=== PATIENT | female | born 1985 | race African-American/Black ===

== ENCOUNTER 2016-10-30 09:17 | Emergency (ER) | payer SELFPAY ==
[2016-10-30] MEDS ORDERED: TETRACAINE HCL 0.5% OPH SOLN 2 ML ONE (10:35)
[2016-10-30] MEDS ORDERED: DIPH/PERTUSS(ACELL)/TETANUS VAC/PF 0.5 ML SYR (>=10YO) IM ONE (10:53)
--- NOTE | 2016-10-30 11:04 | ER Document Report ---
ED Eye Complaint - General Chief Complaint: Redness of Eye Stated Complaint: EYE PAIN Time seen by provider: 10:57 Mode of Arrival: Ambulatory Information source: Patient Notes: This is a 31-year-old female that presents to the emergency room with right eye redness and irritation. Patient states that she recently went to [facility] 2 days ago and received new contact lenses and wear them all day Sunday and took out the contact lenses Sunday night. She states she put the contacts back in on Sunday morning and during the day she noticed that her right I was getting red and irritated. She took at the contacts Sunday night at 9:30 PM. She awoke this morning (Sunday) with right eye irritation, watering and redness. TRAVEL OUTSIDE OF THE [place] IN LAST 30 DAYS: No - HPI Onset: Yesterday Eye location: Right Injury: No Occurred at: Home Quality of pain: Dull Severity: Mild Pain Level: 1 Exposure: No: Alkaline chemical, Acidic chemical, Unknown chemical, Direct trauma, Projectile, Broken glass, Conjunctivitis, Welding arc, [place], Other Safety glasses worn: No Contact lenses worn: No Associated symptoms: Burning, Itching, Photophobia, Redness - Related Data Allergies/Adverse Reactions: No Known Allergies Allergy (Verified 10/30/16 09:30) Past Medical History - General Information source: Patient - Social History Smoking Status: Never Smoker Cigarette use (# per day): No Chew tobacco use (# tins/day): No Frequency of alcohol use: Occasional Drug Abuse: Marijuana Lives with: Family Family History: Arthritis, CVA, DM, Hypertension, Malignancy Patient has suicidal ideation: No Patient has homicidal ideation: No - Medical History Medical History: Negative Neurological Medical History: Reports: Hx Migraine Renal/ Medical History: Denies: Hx Peritoneal Dialysis Musculoskeltal Medical History: Reports Hx Musculoskeletal Deformity Skin Medical History: Reports Hx Cellulitis Infectious Medical History: Denies: Hx MRSA Past Surgical History: Reports: Hx Orthopedic Surgery - rt wrist cyst - Immunizations Immunizations up to date: Yes Hx Diphtheria, Pertussis, Tetanus Vaccination: Yes - 2011 Review of Systems - Review of Systems Constitutional: No symptoms reported EENT: See HPI Cardiovascular: No symptoms reported Respiratory: No symptoms reported Gastrointestinal: No symptoms reported Genitourinary: No symptoms reported Female Genitourinary: No symptoms reported Musculoskeletal: No symptoms reported Skin: No symptoms reported Hematologic/Lymphatic: No symptoms reported Neurological/Psychological: No symptoms reported Physical Exam - Vital signs Vitals: Temp Pulse Resp BP Pulse Ox 98.1 F 78 20 134/84 H 100 10/30/16 09:30 10/30/16 09:30 10/30/16 09:30 10/30/16 09:30 10/30/16 09:30 Notes: Physical exam: GENERAL: 31-year-old female, alert and oriented 3, no acute distress HEAD: Atraumatic, normocephalic. EYES: Pupils equally round and reactive to light, extraocular muscles intact, conjunctivae irritated on the right. Patient does have a visible (to the naked eye) corneal ulcer at approximately 7: 00 in the periphery of the cornea near the limbus. Floor seen shows no other uptake. Anterior chamber: No cells or flare, no hyphema. ENT: TMs normal, nares patent, oropharynx clear without exudates. Moist mucous membranes. NECK: Normal range of motion, supple without lymphadenopathy or JVD. Course - Re-evaluation Re-evalutation: 10/30/16 11:00 Discussed case with the mechanical engineering advisor on-call (Dr. Tang) who was willing to see the patient in his office at 1:15 PM. He will examine the patient and prescribed antibiotic drops. 10/30/16 11:00 Patient will be given a tetanus shot. Prescription for pain medicine 10/30/16 21:02 - Vital Signs Vital signs: Temp Pulse Resp BP Pulse Ox 98.3 F 71 18 132/84 H 100 10/30/16 11:47 10/30/16 11:47 10/30/16 11:47 10/30/16 11:47 10/30/16 11:47 Discharge - Discharge Clinical Impression: right corneal ulcer Condition: Stable Disposition: HOME, SELF-CARE Instructions: Corneal Ulceration ([facility]), Oral Narcotic Medication ([facility]) Additional Instructions: Recommendations: He did receive a tetanus shot today: Usual not require another shot for the next 5-10 years. I want you going to the eye doctor today: They are expecting you at 1:15 PM (2 hours from now). It is important that you get eyedrops today: Dr. Tang stated he would put 2 and drops when he saw you. If you do not get eyedrops, use the ones that we have provided to the ER: Gent eyedrops 2 drops 4 times daily. Do not radiate contact lenses. Return to the emergency room for worsening eye pain or any changes in your physician. Prescriptions: Oxycodone HCl/Acetaminophen [Percocet 5-325 mg Tablet] 1 - 2 tab PO ASDIR PRN # 25 tablet PRN Reason: Forms: Return to Work Referrals: ELYSE TANG MD [ACTIVE STAFF] - 10/30/16 1:15 pm (Go to the office today at 1 PM. As we discussed, normal office visit is $200, but they do have a contract with the hospital that they will see any patient regardless of their ability to pain. They often would like some payment (even $5).)
[2016-10-30] MEDS ORDERED: GENTAMICIN SULFATE 0.3% OPH SOLN 5 ML OD ONE (11:05)
[2016-10-30 11:54] VITALS: BP 132/84
== END 2016-10-30 11:51 | disposition home or self-care (01) ==
LOC: ER 09:17
DX: H16.001 Unspecified corneal ulcer, right eye (principal); H57.11 Ocular pain, right eye
CPT/HCPCS: 99283; 90471; 90715; J3490

== ENCOUNTER 2017-01-24 16:10 | Emergency (ER) | payer SELFPAY ==
[2017-01-24] MEDS ORDERED: ONDANSETRON 4 MG TAB.RAPDIS PO ONE (17:35)
[2017-01-24] MEDS ORDERED: METOCLOPRAMIDE HCL 10 MG TABLET PO ONE (17:36)
[2017-01-24] MEDS ORDERED: DIPHENHYDRAMINE HCL 25 MG CAPSULE PO ONE (17:36)
--- NOTE | 2017-01-24 17:37 | ER Document Report ---
ED Medical Screen (RME) - General Chief Complaint: Palpitations Stated Complaint: RAPID HEART BEAT/HEADACHE Time Seen by Provider: 01/24/17 17:34 Notes: Patient is complaining of migraine headache since about 11:00 today. Also nausea and vomiting, although she has not vomited very much at all today. She gets these headaches frequently, exactly like this headache, but usually she vomits and that relieves the headache. Additionally, today, she is having some anterior chest pains which is different and unusual and concerned her. Also, patient says she has 2 uncles who have had brain aneurysms and she has never had hers checked out. Her only medication for her headaches is over-the- counter analgesics at the drugstore. No recent illness. No fevers. Patient is anxious and says that she thought her symptoms today might be a panic attack. TRAVEL OUTSIDE OF THE [place] IN LAST 30 DAYS: No - Related Data Allergies/Adverse Reactions: No Known Allergies Allergy (Verified 01/24/17 16:21) Past Medical History Neurological Medical History: Reports: Hx Migraine Renal/ Medical History: Denies: Hx Peritoneal Dialysis Musculoskeltal Medical History: Reports Hx Musculoskeletal Deformity Skin Medical History: Reports Hx Cellulitis Infectious Medical History: Denies: Hx MRSA Past Surgical History: Reports: Hx Orthopedic Surgery - rt wrist cyst - Immunizations Immunizations up to date: Yes Hx Diphtheria, Pertussis, Tetanus Vaccination: Yes - 2011
--- NOTE | 2017-01-24 18:01 | RADIOLOGY REPORT (SQ) ---
EXAM DESCRIPTION: CT HEAD WITHOUT COMPLETED DATE/TIME: 01/24/2017 5:51 pm REASON FOR STUDY: Headaches, family history of aneurysm COMPARISON: None. TECHNIQUE: Axial images acquired through the brain without intravenous contrast. Images reviewed wi th bone, brain and subdural windows. Images stored on PACS. All CT scanners at this facility use dose modulation, iterative reconstruction, and/or weight based d osing when appropriate to reduce radiation dose to as low as reasonably achievable (ALARA). [facility]: Dose Right [facility]: CareDose [facility]: Dose Right [facility]: Teradose 4D [facility]: Optherion RADIATION DOSE: 64.61 mGy. LIMITATIONS: None. FINDINGS: VENTRICLES: Normal size and contour. CEREBRUM: No masses. No hemorrhage. No midline shift. Normal galeano/white matter differentiation. N o evidence for acute infarction. CEREBELLUM: No masses. No hemorrhage. No alteration of density. No evidence for acute infarction. EXTRAAXIAL SPACES: No fluid collections. No masses. ORBITS AND GLOBE: No intra- or extraconal masses. Normal contour of globe without masses. CALVARIUM: No fracture. PARANASAL SINUSES: No fluid or mucosal thickening. SOFT TISSUES: No mass or hematoma. OTHER: No other significant finding. IMPRESSION: NORMAL BRAIN CT WITHOUT CONTRAST. TECHNICAL DOCUMENTATION: JOB ID: [id number] Quality ID # [id number]: Final reports with documentation of one or more dose reduction techniques (e.g., Au tomated exposure control, adjustment of the mA and/or kV according to patient size, use of iterative reconstruction technique) 2010 [employer]- All Rights Reserved
[2017-01-24] MEDS ORDERED: NORMAL SALINE 1000 ML 1,000 ML IV ONE (19:04)
[2017-01-24] MEDS ORDERED: ONDANSETRON HCL INJ/PF 4 MG/2 ML SDV IV ONE (19:04)
[2017-01-24] MEDS ORDERED: KETOROLAC TROMETHAMINE INJ/PF 30 MG/1 ML SDV IV ONE (19:04)
[2017-01-24] MEDS ORDERED: PROCHLORPERAZINE EDISYLATE INJ 10 MG/2 ML VIAL IV ONE (19:04)
--- NOTE | 2017-01-24 20:03 | EKG REPORT ---
SEVERITY:- BORDERLINE ECG - SINUS RHYTHM PROBABLE LEFT ATRIAL ABNORMALITY BORDERLINE LEFT AXIS DEVIATION : Confirmed by: Joaquín Lane MD 24-Jan-2017 20:03:26
--- NOTE | 2017-01-24 21:08 | ER Document Report ---
ED General - General Chief Complaint: Palpitations Stated Complaint: POSSIBLE HEART PALPITATIONS/HEADACHE Time Seen by Provider: 01/24/17 17:34 TRAVEL OUTSIDE OF THE [place] IN LAST 30 DAYS: No - HPI Patient complains to provider of: Palpitations headache chest wall pain Notes: Patient is coming in for evaluation of palpitations and headache chest wall pain. Patient states recently broke up with her boyfriend symptoms have worsened since that time his headache is side of her head in a bandlike distribution. Denies any history of trauma. Denies any fevers chills nausea vomiting. Patient also states no recent travel. States similar headaches for the past - Related Data Allergies/Adverse Reactions: No Known Allergies Allergy (Verified 01/24/17 16:21) Past Medical History - Social History Smoking Status: Never Smoker Frequency of alcohol use: None Drug Abuse: Marijuana Family History: Arthritis, CVA, DM, Hypertension, Malignancy Patient has suicidal ideation: No Patient has homicidal ideation: No Neurological Medical History: Reports: Hx Migraine Renal/ Medical History: Denies: Hx Peritoneal Dialysis Musculoskeltal Medical History: Reports Hx Musculoskeletal Deformity Skin Medical History: Reports Hx Cellulitis Infectious Medical History: Denies: Hx MRSA Past Surgical History: Reports: Hx Orthopedic Surgery - rt wrist cyst - Immunizations Immunizations up to date: Yes Hx Diphtheria, Pertussis, Tetanus Vaccination: Yes - 2011 Review of Systems - Review of Systems Constitutional: No symptoms reported EENT: No symptoms reported Cardiovascular: No symptoms reported Respiratory: No symptoms reported Gastrointestinal: No symptoms reported Genitourinary: No symptoms reported Female Genitourinary: No symptoms reported Musculoskeletal: No symptoms reported Skin: No symptoms reported Hematologic/Lymphatic: No symptoms reported Neurological/Psychological: Headaches -: Yes All other systems reviewed and negative Physical Exam - Vital signs Vitals: Temp Pulse Resp BP Pulse Ox 98.3 F 109 H 16 146/107 H 99 01/24/17 16:23 01/24/17 16:23 01/24/17 16:23 01/24/17 16:23 01/24/17 16:23 Interpretation: Normal - General General appearance: Appears well, Alert - HEENT Head: Normocephalic, Atraumatic Eyes: Normal Pupils: PERRL - Respiratory Respiratory status: No respiratory distress Chest status: Nontender Breath sounds: Normal Chest palpation: Normal - Cardiovascular Rhythm: Regular Heart sounds: Normal auscultation Murmur: No - Abdominal Inspection: Normal Distension: No distension Bowel sounds: Normal Tenderness: Nontender Organomegaly: No organomegaly - Back Back: Normal, Nontender - Extremities General upper extremity: Normal inspection, Nontender, Normal color, Normal ROM , Normal temperature General lower extremity: Normal inspection, Nontender, Normal color, Normal ROM , Normal temperature, Normal weight bearing. No: Alvaro's sign - Neurological Neuro grossly intact: Yes Cognition: Normal Orientation: AAOx4 Thang Coma Scale Eye Opening: Spontaneous Thang Coma Scale Verbal: Oriented Thang Coma Scale Motor: Obeys Commands [place] Coma Scale Total: 15 Speech: Normal Motor strength normal: LUE, RUE, LLE, RLE Sensory: Normal - Psychological Associated symptoms: Normal affect, Normal mood - Skin Skin Temperature: Warm Skin Moisture: Dry Skin Color: Normal Course - Re-evaluation Re-evalutation: 01/24/17 23:21 Patient is coming in for evaluation of headache. No signs of any neurological deficits. Patient was given Compazine and Zofran with resolution of her headache. Patient will be discharged home no other critical etiology seen - Vital Signs Vital signs: Temp Pulse Resp BP Pulse Ox 98.2 F 78 21 H 137/99 H 100 01/24/17 21:16 01/24/17 18:09 01/24/17 21:23 01/24/17 21:23 01/24/17 21:23 Discharge - Discharge Clinical Impression: Chest wall pain, Nausea Cluster headache Qualifiers: Headache chronicity pattern: unspecified pattern Intractability: not intractable Qualified Code(s): G44.009 - Cluster headache syndrome, unspecified , not intractable Condition: Good Disposition: HOME, SELF-CARE Instructions: Anti-Inflammatory Medication ([facility]), Chest Wall Pain ([facility]), Cluster Headache ([facility]) Additional Instructions: Take medication as prescribed. Return to the ER if symptoms worsen. Prescriptions: Ondansetron [Zofran Odt 4 mg Tablet] 4 mg PO Q6 #30 tab.rapdis Prochlorperazine Maleate [Compazine] 5 mg PO Q6 #30 tablet Forms: Return to Work
[2017-01-24 21:27] VITALS: BP 137/99
== END 2017-01-24 21:30 | disposition home or self-care (01) ==
LOC: ER 16:10
DX: G44.009 Cluster headache syndrome, unspecified, not intractable (principal); R07.89 Other chest pain; R11.0 Nausea; R00.2 Palpitations; R51 Headache
CPT/HCPCS: 93005; 99285; 96374; 96375; 70450; 93010; S0119; J1885; J0780; J2405; J7030

== ENCOUNTER 2017-09-08 15:14 | Emergency (ER) | payer OTHER ==
[2017-09-08] MEDS ORDERED: IBUPROFEN 600 MG TABLET PO ONE (16:42)
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
[2017-09-08] MEDS ORDERED: HYDROXYZINE PAMOATE 50 MG CAPSULE PO ONE (18:27)
[2017-09-08 18:44] VITALS: BP 132/95
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
== END 2017-09-08 18:44 | disposition home or self-care (01) ==
LOC: ER 15:14
DX: S29.012A Strain of muscle and tendon of back wall of thorax, initial encounter (principal); S03.40XA Sprain of jaw, unspecified side, initial encounter; V49.50XA Passenger injured in collision with unspecified motor vehicles in traffic accident, initial encounter; F43.23 Adjustment disorder with mixed anxiety and depressed mood; R03.0 Elevated blood-pressure reading, without diagnosis of hypertension; F12.10 Cannabis abuse, uncomplicated
CPT/HCPCS: 70110; 72070; 99284

== ENCOUNTER 2019-05-26 19:24 | Emergency (ER) | payer SELFPAY ==
[2019-05-26] MEDS ORDERED: METOCLOPRAMIDE HCL INJ/PF 10 MG/2 ML SDV IV ONE (19:55)
[2019-05-26] MEDS ORDERED: NORMAL SALINE 1000 ML 1,000 ML IV ONE (19:55)
[2019-05-26] MEDS ORDERED: KETOROLAC TROMETHAMINE INJ/PF 30 MG/1 ML SDV IV ONE (19:55)
--- NOTE | 2019-05-26 19:59 | ER Document Report ---
ED Medical Screen (RME) - General Chief Complaint: Abscess Stated Complaint: POSSIBLE ABSCESS Time Seen by Provider: 05/26/19 19:49 Notes: 34-year-old female with history of migraine headaches presents with 2 chief complaints. 1: Patient with an abscess on her right labia majora that started out as a cyst, got progressively worse over the last week, "burst" yesterday, but is still draining purulent discharge with no significant change in the pain level. 2: Patient has a significant headache, typical of previous migraines but worse this time described as global, constant, no vision changes. Patient takes Topamax daily and another medication as needed for breakthrough pain that is not helped her. Exam: Patient in mild distress nontoxic-appearing lungs clear to auscultation in all campos, regular cardiac rate and rhythm, exam deferred in triage I have greeted and performed a rapid initial assessment of this patient. A comprehensive ED assessment and evaluation of the patient, analysis of test results and completion of medical decision making process will be conducted by an additional ED providers. TRAVEL OUTSIDE OF THE [place] IN LAST 30 DAYS: No - Related Data Allergies/Adverse Reactions: No Known Allergies Allergy (Verified 01/24/17 16:21) Past Medical History Neurological Medical History: Reports: Hx Migraine Renal/ Medical History: Denies: Hx Peritoneal Dialysis Musculoskeltal Medical History: Reports Hx Musculoskeletal Deformity Skin Medical History: Reports Hx Cellulitis Infectious Medical History: Denies: Hx MRSA Past Surgical History: Reports: Hx Orthopedic Surgery - rt wrist cyst - Immunizations Immunizations up to date: Yes Hx Diphtheria, Pertussis, Tetanus Vaccination: Yes - 2011 Physical Exam - Vital signs Vitals: Temp Pulse Resp BP Pulse Ox 98.4 F 62 18 153/98 H 100 05/26/19 19:34 05/26/19 19:34 05/26/19 19:34 05/26/19 19:34 05/26/19 19:34 Course - Vital Signs Vital signs: Temp Pulse Resp BP Pulse Ox 98.4 F 62 18 153/98 H 100 05/26/19 19:34 05/26/19 19:34 05/26/19 19:34 05/26/19 19:34 05/26/19 19:34
[2019-05-26] MEDS ORDERED: METOCLOPRAMIDE HCL INJ/PF 10 MG/2 ML SDV ONE (22:32)
[2019-05-26] MEDS ORDERED: KETOROLAC TROMETHAMINE INJ/PF 30 MG/1 ML SDV ONE (22:32)
[2019-05-26] MEDS ORDERED: DIPHENHYDRAMINE HCL 50 MG/ML VIAL ONE (22:32)
[2019-05-26] MEDS: DIPHENHYDRAMINE HCL 50 MG/ML VIAL IV ONE ×2 (22:46→22:48)
--- NOTE | 2019-05-26 22:55 | ER Document Report ---
ED Skin Rash/Insect Bite/Abscs - General Chief Complaint: Abscess Stated Complaint: POSSIBLE ABSCESS Time Seen by Provider: 05/26/19 22:55 Mode of Arrival: Ambulatory Information source: Patient Notes: HISTORY OF PRESENT ILLNESS: Patient is a 34-year-old female with no significant past medical history who presents with right labial swelling as well as possible swelling/abscess to the right thigh. Patient reports that the right thigh swelling has been there for "over a year now," reports that the right labial swelling has been there for several weeks off and on, reports mild drainage from the area. Location: Right labia, thigh Onset: Over a year ago Provocation: Movement Quality: Aching Radiation: None Severity: Mild to moderate Timing: Onset Associated symptoms: No fevers or chills, no vaginal bleeding or discharge REVIEW OF SYSTEMS: CONSTITUTIONAL : Denies fever or chills, no sweats. Denies recent illness. EENT: Denies eye, ear, throat, or mouth pain or symptoms. Denies nasal or sinus congestion. CARDIOVASCULAR: Denies chest pain. RESPIRATORY: Denies cough, cold, or chest congestion. Denies shortness of breath, difficulty breathing, or wheezing. GASTROINTESTINAL: Denies abdominal pain. Denies nausea, vomiting, or diarrhea. Denies constipation. GENITOURINARY: Positive for right labial swelling. Denies difficulty urinating, painful urination, burning, frequency, or blood in urine. Denies vaginal bleeding, abnormal or irregular periods. MUSCULOSKELETAL: Denies neck or back pain or joint pain or swelling. SKIN: Positive for right thigh swelling/possible abscess. HEMATOLOGIC : Denies easy bruising or bleeding. LYMPHATIC: Denies swollen, enlarged glands. NEUROLOGICAL: Denies altered mental status or loss of consciousness. Denies headache. Denies weakness or paralysis or loss of use of either side. Denies problems with gait or speech. Denies sensory or motor loss. PSYCHIATRIC: Denies anxiety or stress or depression. All other systems reviewed and negative. PHYSICAL EXAMINATION: GENERAL: Well-appearing, well-nourished and in no acute distress. HEAD: Atraumatic, normocephalic. No scalp deformity, depression, or crepitance. EYES: Pupils are 3 mm and equal/round/reactive to light, extraocular movements intact, sclera anicteric, conjunctiva are normal. ENT: Nares patent bilaterally, oropharynx clear without exudates or palatal petechia. Moist mucous membranes. No tonsil hypertrophy. NECK: Normal range of motion, supple without lymphadenopathy. LUNGS: Breath sounds present, equal, and clear to auscultation bilaterally. No wheezes, rales, or rhonchi. HEART: Regular rate and rhythm without murmurs, rubs, or gallops. 2+ peripheral pulses. Normal capillary refill. ABDOMEN: Soft, nontender, nondistended. Normoactive bowel sounds. No guarding, no rebound. No masses appreciated. BACK: Normal contour, no midline tenderness. Rectal exam deferred. PELVC: Small area of swelling and erythema to the right labia majora, sero purulent discharge from the same area, no bleeding. EXTREMITIES: 3 to 4 cm area of fluctuance and swelling to the right medial proximal thigh, nontender. Normal range of motion, no pitting or edema. No cyanosis. NEUROLOGICAL: No focal neurological deficits. Moves all extremities spontaneously and on command. PSYCH: Normal mood, normal affect. No suicidal thoughts/ideations. No homicidal thoughts/ideations. No hallucinations. SKIN: Warm, dry, normal turgor, no rashes or lesions noted. ASSESSMENT AND PLAN: This patient is a 34-year-old female who presents with possible right labial abscess as well as possible right thigh abscess. There is some concern that the thigh lesion could also be vascular/inflammatory versus simple cyst in origin. 1. Will obtain soft tissue ultrasound and reassess after oral Bactrim. 2. Will reassess. TRAVEL OUTSIDE OF THE [place] IN LAST 30 DAYS: No - HPI Patient complains to provider of: Tender/swollen area Onset: Other - "Over a year ago" Onset/Duration: Gradual Quality of pain: Achy Severity: Mild Pain Level: Denies Skin Character: Abscess, Lesion Skin Temperature: Warm Identify cause: No Exacerbated by: Movement, Walking Relieved by: Denies Similar symptoms previously: Yes Recently seen / treated by doctor: No - Related Data Allergies/Adverse Reactions: No Known Allergies Allergy (Verified 01/24/17 16:21) Past Medical History - General Information source: Patient - Social History Smoking Status: Never Smoker Chew tobacco use (# tins/day): No Frequency of alcohol use: None Drug Abuse: None Lives with: Family Family History: Arthritis, CVA, DM, Hypertension, Malignancy Patient has suicidal ideation: No Patient has homicidal ideation: No - Past Medical History Cardiac Medical History: Reports: None Pulmonary Medical History: Reports: None EENT Medical History: Reports: None Neurological Medical History: Reports: Hx Migraine Endocrine Medical History: Reports: None Renal/ Medical History: Reports: None. Denies: Hx Peritoneal Dialysis Malignancy Medical History: Reports: None GI Medical History: Reports: None Musculoskeletal Medical History: Reports Hx Musculoskeletal Deformity Skin Medical History: Reports Hx Cellulitis Psychiatric Medical History: Reports: None Traumatic Medical History: Reports: None Infectious Medical History: Reports: None. Denies: Hx MRSA Past Surgical History: Reports: Hx Orthopedic Surgery - rt wrist cyst - Immunizations Immunizations up to date: Yes Hx Diphtheria, Pertussis, Tetanus Vaccination: Yes - 2011 Review of Systems - Review of Systems Constitutional: No symptoms reported EENT: No symptoms reported Cardiovascular: No symptoms reported Respiratory: No symptoms reported Gastrointestinal: No symptoms reported Genitourinary: No symptoms reported Female Genitourinary: See HPI, Other - Labial swelling Musculoskeletal: See HPI, Leg swelling Skin: No symptoms reported Hematologic/Lymphatic: No symptoms reported Neurological/Psychological: No symptoms reported -: Yes All other systems reviewed and negative Physical Exam - Vital signs Vitals: Temp Pulse Resp BP Pulse Ox 98.4 F 62 18 153/98 H 100 05/26/19 19:34 05/26/19 19:34 05/26/19 19:34 05/26/19 19:34 05/26/19 19:34 Interpretation: Normal Course - Re-evaluation Re-evalutation: 05/27/19 02:17 Ultrasound shows a well-circumscribed fluid collection with internal vascularity, could be vascular in origin versus neoplastic. Will discharge the patient home with strict return precautions and follow-up with surgery. All results were explained to and discussed with the patient, and all questions addressed and answered. The patient voices both understanding and agreeing with the plan. - Vital Signs Vital signs: Temp Pulse Resp BP Pulse Ox 98.4 F 81 16 119/84 100 05/26/19 19:34 05/27/19 01:50 05/27/19 01:50 05/27/19 01:50 05/27/19 01:50 - Diagnostic Test Radiology reviewed: Image reviewed, Reports reviewed Discharge - Discharge Clinical Impression: Labial cyst, Mass of right thigh Condition: Good Disposition: HOME, SELF-CARE Instructions: Trimethoprim-Sulfa ([facility]) Additional Instructions: You have been evaluated in the Emergency Department for pain and swelling to your labia as well as your right thigh. While here, you had an ultrasound and it is now safe to be discharged home. Please follow-up with surgery as instructed as soon as possible. Return to the Emergency Department if you experience worsening pain, high fevers, worsening swelling of the area, or any other concerning symptoms. Prescriptions: Hydrocodone/Acetaminophen [Clawson 5-325 mg Tablet] 1 tab PO Q6HP PRN #20 tablet PRN Reason: For Pain Sulfamethoxazole/Trimethoprim [Bactrim Ds Tablet] 1 each PO BID #20 tablet Print Language: [place]
[2019-05-26] MEDS ORDERED: SULFAMETHOXAZOLE/TRIMETHOPRIM 800-160 MG TABLET PO ONE (23:29)
--- NOTE | 2019-05-27 00:23 | RADIOLOGY REPORT (SQ) ---
US EXTREMITY MUSCULOSKELETAL LIMITED EXAM DATE: 05/26/2019 11:29 PM CDT HISTORY: Right thigh abscess COMPARISON: None. TECHNIQUE: Garner-scale and color Doppler images of the right thigh were obtained. FINDINGS: There is a complex well-circumscribed mass in the medial right thigh measuring 3.6 x 3.1 x 2.3 cm. There is internal color Doppler blood flow. IMPRESSION: 3.6 cm complex vascular mass in the medial right thigh. Given the internal color Doppler blood flow, MRI is recommended to exclude a neoplasm.
[2019-05-27 03:27] VITALS: BP 133/93
== END 2019-05-27 03:22 | disposition home or self-care (01) ==
LOC: ER 19:24
DX: N76.4 Abscess of vulva (principal); L02.415 Cutaneous abscess of right lower limb
CPT/HCPCS: 76882; J1200; J1885; J2765; J7030; 96361; 96374; 96375; 99283

== ENCOUNTER → 2019-07-30 | Outpatient (CLI) | payer BC ==
--- NOTE | 2019-07-30 10:04 | WOMENS IMAGING REPORT ---
EXAM DESCRIPTION: U/S ABDOMEN LIMITED COMPLETED DATE/TIME: 07/30/2019 8:37 am REASON FOR STUDY: R10.84 GENERALIZED ABDOMINAL PAIN R10.84 GENERALIZED ABDOMINAL PAIN COMPARISON: None. TECHNIQUE: Dynamic and static grayscale images acquired of the abdomen and recorded on PACS. Additio nal selected color Doppler and spectral images recorded. LIMITATIONS: None. FINDINGS: PANCREAS: No masses. Visualized pancreatic duct normal caliber. LIVER: No masses. Echotexture normal. LIVER VASCULATURE: Normal directional flow of the main portal vein and hepatic veins. GALLBLADDER: No stones. Normal wall thickness. No pericholecystic fluid. ULTRASOUND-DETECTED SHORT'S SIGN: Negative. INTRAHEPATIC DUCTS AND COMMON DUCT: CBD and intrahepatic ducts normal caliber. No filling defects. INFERIOR VENA CAVA: Normal flow. AORTA: No aneurysm. RIGHT KIDNEY: Normal size. Normal echogenicity. No solid or suspicious masses. No hydronephrosis. No calcifications. PERITONEAL AND RIGHT PLEURAL SPACE: No ascites or effusions. OTHER: No other significant findings. IMPRESSION: NORMAL RIGHT UPPER QUADRANT ULTRASOUND. TECHNICAL DOCUMENTATION: JOB ID: [id number]- All Rights Reserved Reading location - IP/workstation name: [email or web address]
== END ==
LOC: WI 08:07
PROVIDERS: ATTEND Nurse Practitioner
DX: R10.84 Generalized abdominal pain (principal)
CPT/HCPCS: 76705